=== PATIENT | male | born 1965 | race Caucasian/White ===

== ENCOUNTER 2017-11-18 08:15 | Emergency (ER) | payer OTHER ==
[2017-11-18 09:41] VITALS: TEMP 98.2; BMI 28.8
--- NOTE | 2017-11-18 09:41 | EKG ---
Test Reason : Blood Pressure : / mmHG Vent. Rate : 079 BPM Atrial Rate : 079 BPM P-R Int : 166 ms QRS Dur : 106 ms QT Int : 362 ms P-R-T Axes : 065 030 050 degrees QTc Int : 415 ms NORMAL SINUS RHYTHM NORMAL ECG NO PREVIOUS ECGS AVAILABLE Confirmed by VINEET ELIAS MD ([id number]) on 11/18/2017 9:40:40 AM Referred By: Confirmed By:VINEET ELIAS MD
[2017-11-18 09:53] LABS: BASO % 0.9 % (0-2.0); EOS % 0.4 % (0-4.5); HEMATOCRIT 42.4 % (35.4-49); HEMOGLOBIN 15.3 GM/dL (11.7-16.9); LYMPH % 14.2 % (8-40); MCH 32.5 pg (25.7-33.7); MCHC 36.1 g/dl (32.0-35.9); MEAN CELL VOLUME 89.9 fl (80-96); MEAN PLT VOLUME 7.5 fl (7.5-11.1); MONO % 6.7 % (3.8-10.2); NEUT % 77.8 % (42.8-82.8); RBC 4.71 M/mm3 (4.00-5.60); RDW 13.3 % (11.9-15.9); WHITE BLOOD COUNT 8.2 K/mm3 (4.0-10.0)
[2017-11-18 09:55] LABS: PLATELET COUNT 191 K/MM3 (134-434)
[2017-11-18 09:57] LABS: ANION GAP 4 (8-16); BILIRUBIN,TOTAL 0.6 mg/dL (0.2-1.0); BLOOD UREA NITROGEN 16 mg/dL (7-18); CALCIUM 8.3 mg/dL (8.5-10.1); CHLORIDE 110 mmol/L (98-107); CO2 26 mmol/L (21-32); CREATININE 0.9 mg/dL (0.7-1.3); GLUCOSE,RANDOM 103 mg/dL (74-106); MAGNESIUM 1.9 mg/dL (1.8-2.4); PHOSPHOROUS 2.2 mg/dL (2.5-4.9); POTASSIUM 3.8 mmol/L (3.5-5.1); SGOT/AST 18 U/L (15-37); SGPT/ALT 26 U/L (12-78); SODIUM 140 mmol/L (136-145); TOT PROT 7.1 g/dl (6.4-8.2)
[2017-11-18 09:57] LABS: URINE APPEARANCE CLOUDY; URINE BILIRUBIN NEGATIVE (<2.0 mg/dL); URINE BLOOD 1+ (NEGATIVE); URINE COLOR YELLOW; URINE GLUCOSE (UA) NEGATIVE (NEGATIVE); URINE KETONE NEGATIVE (NEGATIVE); URINE LEUK ESTERASE NEGATIVE (NEGATIVE); URINE NITRITE NEGATIVE (NEGATIVE); URINE PROTEIN NEGATIVE (NEGATIVE); URINE UROBILINOGEN NEGATIVE mg/dL (0.2-1.0)
[2017-11-18 09:59] LABS: ALK PHOS 63 U/L (45-117)
--- NOTE | 2017-11-18 10:41 | PDOC ---
History of Present Illness - General History Source: Patient Exam Limitations: No Limitations - History of Present Illness Initial Comments: 11/18/17 11:10 The patient is a 52 year old male, with a significant past medical history of diet controlled prediabetes and pancytopenia, who presents to the emergency department s/p fainting episode earlier this morning. The patient reports waking up at his baseline and going about his daily morning routine. However, patient did not eat this morning and only had a cup of coffee. While at work, patient reports he became lightheaded, dizzy, and nauseous. Shortly after, patient reports syncopal episode, where he hit his head, but was wearing a hard hat. At the time EMS was activated. During transport patient reports he regained consciousness, and was thinking clearly, without confusion. It is unclear whether patient experienced any tremors. Patient denies any headache, dizziness, changes in vision, focal weakness, numbness, tingling, neck or back pain. He denies any chest pain, shortness of breath, diaphoresis or palpitations. He denies any recent illness, fever or chills. He denies any abdominal pain, vomiting, diarrhea, or constipation. He denies any dysuria, hematuria, frequency, or urgency. He denies any recent travel or sick contacts. First-time episode. No family history of neurological disorders. Allergies: NKDA Past Surgical History: None reported Social History: Daily ETOH use. Former smoker. No recreational drug use. Patient works as an licensed journeyman electrician and in construction. <Jeff Babin - Last Filed: 11/18/17 11:10> - General History Source: Patient Exam Limitations: No Limitations <Pipo Izquierdo - Last Filed: 11/19/17 08:31> - General Chief Complaint: Syncope/Near Syncope Stated Complaint: SEIZURE Time Seen by Provider: 11/18/17 08:29 Past History <Jeff Babin - Last Filed: 11/18/17 11:10> - Past Medical History COPD: No Diabetes: Yes Other medical history: PANCYTOPENIA - Suicide/Smoking/Psychosocial Hx Smoking History: Former smoker Have you smoked in the past 12 months: No Information on smoking cessation initiated: No <Pipo Izquierdo - Last Filed: 11/19/17 08:31> - Past Medical History Allergies/Adverse Reactions: Allergies Allergy/AdvReac Type Severity Reaction Status Date / Time No Known Allergies Allergy Verified 11/18/17 08:41 Home Medications: Ambulatory Orders NK [No Known Home Medication] 11/18/17 Review of Systems - Review of Systems Able to Perform ROS?: Yes Comments:: 11/18/17 10:48 GENERAL/CONSTITUTIONAL: No fever or chills. No weakness. HEAD, EYES, EARS, NOSE AND THROAT: No change in vision. No ear pain or discharge. No sore throat. CARDIOVASCULAR: No chest pain or shortness of breath. RESPIRATORY: No cough, wheezing, or hemoptysis. GASTROINTESTINAL: +Nausea. No vomiting, diarrhea or constipation. GENITOURINARY: No dysuria, frequency, or change in urination. MUSCULOSKELETAL: No joint or muscle swelling or pain. No neck or back pain. SKIN: No rash NEUROLOGIC: +Lightheadedness, loss of consciousness. No headache, vertigo, or change in strength/sensation. ENDOCRINE: No increased thirst. No abnormal weight change. HEMATOLOGIC/LYMPHATIC: No anemia, easy bleeding, or history of blood clots. ALLERGIC/IMMUNOLOGIC: No hives or skin allergy. <Jeff Babin - Last Filed: 11/18/17 11:10> *Physical Exam - Vital Signs Last Vital Signs Temp Pulse Resp BP Pulse Ox 98.2 F 87 17 113/73 96 11/18/17 08:30 11/18/17 08:30 11/18/17 08:30 11/18/17 08:30 11/18/17 08:30 - Physical Exam Comments: 11/18/17 10:49 GENERAL: Awake, alert, and fully oriented, in no acute distress HEAD: No signs of trauma EYES: PERRLA, EOMI, sclera anicteric, conjunctiva clear ENT: Auricles normal inspection, hearing grossly normal, nares patent, oropharynx clear without exudates. Moist mucosa NECK: Normal ROM, supple, no lymphadenopathy, JVD, or masses LUNGS: Breath sounds equal, clear to auscultation bilaterally. No wheezes, and no crackles HEART: Regular rate and rhythm, normal S1 and S2, no murmurs, rubs or gallops ABDOMEN: Soft, nontender, normoactive bowel sounds. No guarding, no rebound. No masses EXTREMITIES: Normal range of motion, no edema. No clubbing or cyanosis. No cords, erythema, or tenderness NEUROLOGICAL: Cranial nerves II through XII grossly intact. Normal speech, normal gait. Sensation intact. 5/5 motor strength at all extremities. SKIN: Warm, Dry, normal turgor, no rashes or lesions noted. <Jeff Babin - Last Filed: 11/18/17 11:10> - Vital Signs Last Vital Signs Temp Pulse Resp BP Pulse Ox 98.2 F 87 17 113/73 96 11/18/17 08:30 11/18/17 08:30 11/18/17 08:30 11/18/17 08:30 11/18/17 08:30 - Physical Exam Comments: 11/19/17 08:31 CN II-XII intact, not grossly intact. No pronator drift. No dysmetria. <Pipo Izquierdo - Last Filed: 11/19/17 08:31> Heart Score/ECG Review #1 11/18/17 10:50 NSR , no std/jill, normal axis, normal intervals, no brugada, no HOCM, no WPW <Pipo Izquierdo - Last Filed: 11/19/17 08:31> ED Treatment Course - LABORATORY CBC & Chemistry Diagram: 11/18/17 09:00 11/18/17 09:00 - ADDITIONAL ORDERS Additional order review: Laboratory Results 11/18/17 11/18/17 09:50 09:00 Sodium 140 Potassium 3.8 Chloride 110 H Carbon Dioxide 26 Anion Gap 4 L BUN 16 Creatinine 0.9 Creat Clearance w eGFR > 60 Random Glucose 103 Calcium 8.3 L Phosphorus 2.2 L Magnesium 1.9 Total Bilirubin 0.6 AST 18 ALT 26 Alkaline Phosphatase 63 Creatine Kinase 97 Troponin I 0.02 Total Protein 7.1 Albumin 4.0 Urine Color Yellow Urine Appearance Cloudy Urine pH 5.0 Ur Specific Benedict 1.021 Urine Protein Negative Urine Glucose (UA) Negative Urine Ketones Negative Urine Blood 1+ H Urine Nitrite Negative Urine Bilirubin Negative Urine Urobilinogen Negative Ur Leukocyte Esterase Negative 11/18/17 09:00 RBC 4.71 MCV 89.9 MCHC 36.1 H RDW 13.3 MPV 7.5 Neutrophils % 77.8 Lymphocytes % 14.2 Monocytes % 6.7 Eosinophils % 0.4 Basophils % 0.9 <Jeff Babin - Last Filed: 11/18/17 11:10> - LABORATORY CBC & Chemistry Diagram: 11/18/17 09:00 11/18/17 09:00 - ADDITIONAL ORDERS Additional order review: Laboratory Results 11/18/17 11/18/17 09:50 09:00 Sodium 140 Potassium 3.8 Chloride 110 H Carbon Dioxide 26 Anion Gap 4 L BUN 16 Creatinine 0.9 Creat Clearance w eGFR > 60 Random Glucose 103 Calcium 8.3 L Phosphorus 2.2 L Magnesium 1.9 Total Bilirubin 0.6 AST 18 ALT 26 Alkaline Phosphatase 63 Creatine Kinase 97 Troponin I 0.02 Total Protein 7.1 Albumin 4.0 Urine Color Yellow Urine Appearance Cloudy Urine pH 5.0 Ur Specific Benedict 1.021 Urine Protein Negative Urine Glucose (UA) Negative Urine Ketones Negative Urine Blood 1+ H Urine Nitrite Negative Urine Bilirubin Negative Urine Urobilinogen Negative Ur Leukocyte Esterase Negative 11/18/17 09:00 RBC 4.71 MCV 89.9 MCHC 36.1 H RDW 13.3 MPV 7.5 Neutrophils % 77.8 Lymphocytes % 14.2 Monocytes % 6.7 Eosinophils % 0.4 Basophils % 0.9 - RADIOLOGY Radiology Studies Ordered: Category Date Time Status HEAD CT WITHOUT CONTRAST [CT] Stat CT Scan 11/18/17 08:51 Completed CHEST X-RAY PORTABLE* [RAD] Stat Radiology 11/18/17 08:56 Completed <Pipo Izquierdo - Last Filed: 11/19/17 08:31> Medical Decision Making - Medical Decision Making 11/18/17 11:11 First call placed to Dr. Dukes at 10:25. Case discussed at this time. <Jeff Babin - Last Filed: 11/18/17 11:10> - Medical Decision Making 11/18/17 10:52 A portion of this note was documented by scribe services under my direction. I have reviewed the details of the note, within reason, and agree with the documentation with the following case summary and management plan written by me. Patient treated in the ED. Nursing notes are reviewed and incorporated into the medical decision-making. Vital signs reviewed. Peripheral IV access obtained by the nurse, laboratory studies are drawn and sent, reviewed and interpreted by myself. Vital Signs Temp Pulse Resp BP Pulse Ox 98.2 F 87 17 113/73 96 11/18/17 08:30 11/18/17 08:30 11/18/17 08:30 11/18/17 08:30 11/18/17 08:30 52-year-old male with past medical history of diet-controlled prediabetes presents with fainting. The patient was in his usual state of health today. However, patient did not eat this morning and only had a couple coffee. He works as an licensed journeyman electrician and in construction. The patient started feeling nauseous, lightheaded and dizzy. He was wearing his hard hat and he subsequently syncopized. Denied chest pain or short of breath or palpitations. It was initially unwitnessed. He was unclear if the patient had any "shakes". However, the patient woke up clear and without confusion. He did report that he woke up in the ambulance. Denies any symptoms. First-time episode. No family history of neurological disorders. Came into the ED for further evaluation. The patient's history and physical suggests that this may have been vasovagal syncope. However, given questionable history of potential seizure, head CT was obtained. ECG demonstrate no acute findings and blood work demonstrates no other findings. I suspect this is likely more vasovagal than cardiac etiology at this moment. Regarding the CAT scan head, there was a questionable rule out arachnoid cyst. I had spoken and consulted Dr. Dukes and is where the case. States and requests that the patient, which was office for evaluation by him. The patient is cleared to be discharged with follow-up with neurologist immediately after the ER visit. I sent the patient that he is not to return to work until he is cleared by the neurologist. Patient verbalizes understanding and is being escorted by friend. Return precautions given. Patient does not live around in this area and states he will follow-up with his own doctors in his hometown. I discussed the physical exam findings, ancillary test results and final diagnoses with the patient. I answered all of the patient's questions. The patient was satisfied with the care received and felt comfortable with the discharge plan and treatment plan. The patient will call their primary care physician within 24 hours to arrange follow-up and will return to the Emergency Department with any new, persistant or worsening symptoms. <Pipo Izquierdo - Last Filed: 11/19/17 08:31> *DC/Admit/Observation/Transfer - Attestations Scribe Attestion: 11/18/17 10:49 Documentation prepared by Jeff Babin, acting as medical research scientist for Pipo Izquierdo MD. <Jeff Babin - Last Filed: 11/18/17 11:10> - Discharge Dispostion Admit: No <Pipo Izquierdo - Last Filed: 11/19/17 08:31> Diagnosis at time of Disposition: Syncope Qualifiers: Syncope type: vasovagal syncope Qualified Code(s): R55 - Syncope and collapse - Discharge Dispostion Disposition: HOME Condition at time of disposition: Stable - Referrals Referrals: Scottie Dukes MD [Staff Physician] - - Patient Instructions Printed Discharge Instructions: DI for Syncope in Adults (Fainting) Additional Instructions: Your EKG, chest xray, and blood work is unremarkable. Your Head CT results were given to you. I had spoken with neurologist Dr. Dukes. He requests that you follow up with him now. Go walk to his office now for follow up.
[2017-11-18 11:13] VITALS: BP 127/73; PULSE 72
[2017-11-18 11:17] LABS: URINE BACTERIA RARE /hpf (NONE SEEN); URINE MUCUS RARE
== END 2017-11-18 11:00 | disposition home or self-care (01) ==
LOC: JER 08:15
DX: D61.818 Other pancytopenia (principal)
CPT/HCPCS: 36415; 70450-TC; 71045-TC-FY; 80053; 81003; 81015; 82550; 83735; 84100; 84484; 85025; 93005; 93010; 99282-25